=== PATIENT | male | born 2000 | race Caucasian/White ===

== ENCOUNTER 2019-07-11 21:54 | Emergency (ER) | payer OTHER ==
[2019-07-11] MEDS ORDERED: TETRACAINE HCL 0.5% OPHTH SOL 1 DROP ONE (22:06)
[2019-07-11] MEDS ORDERED: ERYTHROMYCIN OPHTH OINT 1 APPLIC LEFT_EYE ONE (22:17)
[2019-07-11 22:20] VITALS: TEMP 97.5
--- NOTE | 2019-07-11 22:21 | ED.PDOC ---
History of Present Illness - General Chief Complaint: Eye Problems Stated Complaint: foreign object to eye Time Seen by Provider: 07/11/19 22:16 Source: patient Exam Limitations: no limitations - History of Present Illness Initial Comments: the patient is 19-year-old male presenting to the emergency room secondary to getting a metal grinding in his left eye about 6 hours prior to arrival. It is at approximately 12:00. No other injury to the eyes noted. Extremity movements are intact pupils reactive vision is mildly blurry as would be expected. He was grinding on something when this happened. 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 Timing/Duration: 4-6 hours Severity: moderate Improving Factors: nothing Worsening Factors: nothing Associated Symptoms: denies symptoms Allergies/Adverse Reactions: Allergies NO KNOWN ALLERGY Allergy (Verified 07/11/19 22:12) Home Medications: Ambulatory Orders Omeprazole 20 mg PO DAILY 07/11/19 Review of Systems - Review of Systems Constitutional: States: no symptoms reported EENTM: States: see HPI Respiratory: States: no symptoms reported Cardiology: States: no symptoms reported Gastrointestinal/Abdominal: States: no symptoms reported Genitourinary: States: no symptoms reported Musculoskeletal: States: no symptoms reported Skin: States: no symptoms reported Neurological: States: no symptoms reported Endocrine: States: no symptoms reported All other Systems: No Change from Baseline Family Medical History - Family History Mother Living Status: Still Living Hx Family Diabetes: Yes Physical Exam - Physical Exam General Appearance: Alert, Comfortable, No apparent distress Eye Exam: right normal, left other - see history of present illness Ears, Nose, Throat: hearing grossly normal Neck: full range of motion Respiratory: no respiratory distress, no accessory muscle use Cardiovascular/Chest: normal peripheral pulses, no edema Peripheral Pulses: radial,right: 2+, radial,left: 2+ Rectal Exam: deferred Extremity: normal range of motion, non-tender, normal capillary refill Neurologic: 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 This was removed under direct visualization. Patient tolerated this well. The patient will be placed on erythromycin ophthalmologic ointment for the next few days to prevent infection and allow for healing. He can also use rewetting drops to prevent drying of the eye and to promote healing. Motrin can be used for discomfort. ER warnings were given. vitorvidal singh [id number] Departure - Departure Clinical Impression: Foreign body in cornea, left eye, initial encounter Corneal abrasion Qualifiers: Encounter type: initial encounter Laterality: left Qualified Code(s): S05.02XA - Injury of conjunctiva and corneal abrasion without foreign body, left eye, initial encounter Disposition: Discharge to Home or Self Care Condition: Fair Departure Forms: ED Discharge - Pt. Copy, Patient Portal Self Enrollment Instructions: Corneal Abrasion (DC) Diet: regular diet Activity: increase activity as tolerated Home Medications: Ambulatory Orders Omeprazole 20 mg PO DAILY 07/11/19 Additional Instructions: the patient's 19-year-old male presenting to the emergency room secondary to having gotten a metal grinding in his left eye. This was removed under direct visualization. Patient tolerated this well. The patient will be placed on erythromycin ophthalmologic ointment for the next few days to prevent infection and allow for healing. He can also use rewetting drops to prevent drying of the eye and to promote healing. Motrin can be used for discomfort. ER warnings were given.
[2019-07-11 22:32] VITALS: BP 125/71; O2SAT 98
== END 2019-07-11 22:32 | disposition home or self-care (01) ==
LOC: ER 21:54
DX: T15.02XA Foreign body in cornea, left eye, initial encounter (principal); X58.XXXA Exposure to other specified factors, initial encounter; Y99.0 Civilian activity done for income or pay; Y92.69 Other specified industrial and construction area as the place of occurrence of the external cause